=== PATIENT | female | born 1975 | race Caucasian/White ===

== ENCOUNTER 2016-07-15 08:08 | Emergency (ER) | payer OTHER ==
[2016-07-15 08:17] VITALS: BP 121/83; PULSE 98; RESP 16; O2SAT 96
[2016-07-15] MEDS ORDERED: ACETAMINOPHEN 325 MG TAB PO ONE (08:25)
[2016-07-15] MEDS ORDERED: IBUPROFEN 800 MG TAB PO ONE (08:25)
--- NOTE | 2016-07-15 08:29 | UCPHY ---
H & P Time Seen by Provider: 07/15/16 08:24 Patient Type: Established HPI/ROS: HPI Cough, congestion, sore throat. 40-year-old female by private vehicle with her son. This patient reports onset of fever, cough, nasal congestion, chest congestion, nonproductive cough and sore throat since Tuesday evening. No ill contacts. She denies significant myalgias or arthralgias. ROS: Constitutional: As, no chills. No weakness. Eyes: No discharge. No changes in vision. ENT: As above. Respiratory: As above. No shortness of breath. Cardiac: No chest pain, no palpitations. Gastrointestinal: No abdominal pain, no vomiting, no diarrhea. Genitourinary: No hematuria. No dysuria or increased frequency with urination. Musculoskeletal: No back pain. No neck pain. No myalgias or arthralgias. Skin: No rashes. Neurological: No headache. No focal weakness or altered sensation. Past medical history: No significant past medical history. Social history: Here with her son. Physical Exam: General Appearance: Alert, no distress. This patient is responding to questions appropriately and in full sentences. This patient appears well- hydrated and well-nourished. Eyes: Pupils equal and round no pallor or injection. No lid edema, erythema or injection. ENT, Mouth: Mucous membranes are moist. The pharyngeal tissues are unremarkable. No edema or swelling. No asymmetry suggestive of abscess. No erythema or exudates. Respiratory: There are no retractions, lungs are clear to auscultation with good air movement bilaterally. Intermittent dry nonproductive cough Cardiovascular: Regular rate and rhythm. No murmur. Neurological: Motor sensory function is grossly intact. Cranial nerves are normal. Gait is normal. Skin: Warm and dry, no rashes. Musculoskeletal: Neck is supple and nontender. Extremities are symmetrical. All joints range without pain or impingement. Psychiatric: No agitation. No depression. Database: Rapid flu-negative. EKG: Imaging: Procedures: Emergency department course: Patient given 650 mg of Tylenol and 600 mg of ibuprofen. Discussed diagnosis of probable viral syndrome versus influenza. 9:10 a.m., patient re-evaluated. Resting comfortably at this time. Results of influenza assay discussed. I do not feel that Tamiflu is indicated. Plan will be supportive care with ibuprofen and Tylenol for treatment of sore throat and fevers. Rest and oral hydration discussed. Follow-up reviewed. Return to Urgent Care/emergency department precautions discussed. All of her questions were answered. She was discharged in good condition. Differential Diagnosis: The differential diagnosis on this patient includes but is not limited to influenza, viral syndrome, viral upper respiratory infection. Pneumonia, serious bacterial infection unlikely. This represents a partial list of diagnoses considered. These considerations are based on history, physical exam , past history, reassessment and diagnostic testing. Smoking Status: Never smoked Constitutional: Initial Vital Signs Temperature (C) 37.2 C 07/15/16 08:15 Heart Rate 98 07/15/16 08:15 Respiratory Rate 16 07/15/16 08:15 Blood Pressure 121/83 H 07/15/16 08:15 O2 Sat (%) 96 07/15/16 08:15 O2 Delivery Mode Room Air Allergies/Adverse Reactions: Sulfa (Sulfonamide Antibiotics) Allergy (Severe, Verified 03/22/15 11:22) RAPID HEART RATE Penicillins Allergy (Mild, Verified 03/22/15 11:22) Rash CHOCOLATE Allergy (Intermediate, Uncoded 03/22/15 11:22) MIGRAINES Home Medications: Medication Instructions Recorded valACYclovir [ValTREX 500MG] 1 tab PO DAILY 06/18/12 Multivitamins [Multivitamin (OTC)] 03/22/15 Medical Decision Making - Data Points Laboratory Results: 07/15/16 08:35 Influenza Typ A,B (DFA) NEGATIVE FOR FLU (NEGATIVE) Medications Given: Discontinued Medications Acetaminophen (Tylenol) 650 mg PO EDNOW ONE Stop: 07/15/16 08:26 Last Admin: 07/15/16 08:38 Dose: 650 mg Ibuprofen (Motrin) 600 mg PO EDNOW ONE Stop: 07/15/16 08:26 Last Admin: 07/15/16 08:38 Dose: 600 mg Departure - Departure Disposition: Home, Routine, Self-Care Clinical Impression: Viral syndrome, Upper respiratory infection Condition: Good Instructions: Upper Respiratory Infection (ED) Additional Instructions: Read and follow provided instructions. Follow-up with your primary care physician in 1-2 days for re-evaluation as needed. Ibuprofen dosin mg every 6 hours with meals for the next 3 days only. Tylenol dosin mg every 6-8 hours as needed for fever control over the next 3 days. DayQuil or NyQuil to be used for nasal congestion and symptom control. Take as directed. Return to the emergency department for worsening symptoms, high fever, worsening cough, worsening sore throat or other serious concerns. Referrals: NONE *PRIMARY CARE P,. [Primary Care Provider] - As per Instructions - PQRS PQRS Measurement: Not applicable.
[2016-07-15] MEDS ORDERED: IBUPROFEN 600 MG TAB PO ONE (08:33)
[2016-07-15] MEDS ORDERED: IBUPROFEN 200 MG TAB PO ONE (08:34)
[2016-07-15 09:20] VITALS: TEMP 98.6
== END 2016-07-15 09:16 | disposition home or self-care (01) ==
LOC: CED 08:08
DX: J06.9 Acute upper respiratory infection, unspecified (principal); Z88.0 Allergy status to penicillin; Z88.2 Allergy status to sulfonamides
CPT/HCPCS: 87400-PO; 99214-PO; G0463-PO

== ENCOUNTER → 2017-04-19 | Outpatient (CLI) | payer OTHER | LOC: FIMAGING 09:44 | PROVIDERS: ATTEND Obstetrics & Gynecology | DX: Z12.31 Encounter for screening mammogram for malignant neoplasm of breast (principal) | CPT/HCPCS: G0202 ==

== ENCOUNTER → 2018-04-25 | Outpatient (CLI) | payer OTHER | LOC: CIMAGING 09:57 | PROVIDERS: ATTEND Obstetrics & Gynecology | DX: Z12.31 Encounter for screening mammogram for malignant neoplasm of breast (principal) ==